=== PATIENT | male | born 1985 | race Caucasian/White ===

== ENCOUNTER 2020-09-07 13:58 | Emergency (ER) | payer SELFPAY ==
[2020-09-07 14:06] VITALS: BP 126/81; PULSE 84; RESP 18; TEMP 36.7; O2SAT 98; BMI 23.7
--- NOTE | 2020-09-07 14:40 | W.ED.EXTPRO ---
HPI - Extremity Problem General: Chief complaint: Extremity Injury, Upper Stated complaint: finger lac Time Seen by Provider: 09/07/20 14:14 History of Present Illness: HPI Narrative: 34-year-old male presents to the emergency room after an avulsion injury to the tip of his left thumb with a utility knife that he was using while putting up drywall. He is unsure of his last tetanus shot he had aggressively bandaged the wound before he came in. MD Complaint: extremity pain Onset (ago): minute(s) Pain Consistency: constant Location: left Quality: sharp Radiation: none Relieving factors: nothing Exacerbating factors: nothing Associated symptoms: Deny arthralgias, chest pain, fever(s), myalgias or rash Review of Systems Const: Denies: fever(s) Card: Denies: chest pain, edema, dyspnea on exertion or orthopnea Resp: Denies: dyspnea, productive cough or non-productive cough GI: Denies: abdominal pain, nausea, vomiting, hematemesis, coffee ground emesis, diarrhea, constipation, bloating, hematochezia or melena Skin/Breast: Denies: rash Physical Exam Const: COMMON NORMALS: average body habitus, patient oriented x3 and alert GENERAL APPEARANCE: cooperative, comfortable, well kempt and well developed NUTRITIONAL APPEARANCE: obese ORIENTATION/CONSCIOUSNESS: Yes awake, Yes oriented to person and Yes oriented to place HENMT: COMMON NORMALS: normocephalic, atraumatic and EAC's normal HEAD & SCALP: normocephalic and atraumatic EXTERNAL AUDITORY CANAL: EAC's normal Resp: COMMON NORMALS: normal respiratory effort, No retractions, No use of accessory muscles and clear to auscultation bilaterally AUSCULTATION: clear to auscultation bilaterally Cardio: COMMON NORMALS: regular rate and regular rhythm RATE: regular rate RHYTHM: regular rhythm HEART SOUNDS: no murmurs Extremity: NARRATIVE EXTREMITY EXAM: Avulsion of the pad of the left thumb. To little bit more distal to the tip it is about 1 cm round. Neuro: COMMON NORMALS: patient oriented x3 SENSORIUM/ORIENTATION: Yes alert, Yes oriented to person and Yes oriented to place Psych: APPEARANCE: Yes well kempt Course Vital Signs: Vital signs: Vital Signs Temperature 98.0 F 09/07/20 14:06 Pulse Rate 84 10/20/20 14:06 Respiratory Rate 18 09/07/20 14:06 Blood Pressure 126/81 09/07/20 14:06 Pulse Oximetry 98 09/07/20 14:06 MDM - Extremity (Nontraumatic) MDM Narrative: Medical decision making narrative: Wound dressed with Vaseline gauze demonstrated patient how to dress the wound advised he does once daily wound care instructions given Tylenol or Profen as needed follow-up as needed with primary care doctor tetanus updated Discharge Plan Discharge Patient Disposition: Home Clinical Impression: Avulsion of finger tip Condition: Stable Discharge Orders: Discharge Order (Routine); Ordered 09/07/20 Ordered By: Vidal Samuel Discharge Diet: Usual diet Discharge Activity: Increase activity as tolerated Activity Restrictions/Additional Instructions: Wound care instructions as given change of dressing once daily Coding Level of Care Code ED Nail Making Machine Setter for Neli Martinez
[2020-09-07] MEDS: tetanus-dipt-pertussis 0.5 mL SDV IM (14:55)
== END 2020-09-07 14:58 | disposition home or self-care (01) ==
PROVIDERS: Emergency Provider Family Medicine
DX: S61.002A Unspecified open wound of left thumb without damage to nail, initial encounter (principal); W26.0XXA Contact with knife, initial encounter; Z23 Encounter for immunization
CPT/HCPCS: 12345; 90471; 90715; 99281; 99282

== ENCOUNTER 2021-01-10 23:03 | Emergency (ER) | payer SELFPAY ==
[2021-01-10 23:10] VITALS: BP 130/83; PULSE 68; RESP 16; TEMP 36.7; O2SAT 99; BMI 25.0
--- NOTE | 2021-01-10 23:10 | XR_ITS ---
WS: [id number] Exam: XR knee LT 3V* [id number] Date/Time of Exam: 01/10/2021 11:13 PM Reason For Exam: left knee pain No fracture or dislocation. The medial and lateral joint compartments are preserved. There is subchon dral bone spurring along the articulating surface of the patella. No joint effusion. XR/XR knee LT 3V* [id number] IMPRESSION: 1. No fracture or joint effusion. 2. Subchondral bone spurring seen along the articulating surface of the patella .
[2021-01-10] MEDS: ibuprofen 600 mg Tablet PO (23:21)
--- NOTE | 2021-01-10 23:21 | W.ED.EXTPRO ---
HPI - Extremity Problem General: Chief complaint: Extremity Injury, Lower Stated complaint: twisted knee Time Seen by Provider: 01/10/21 23:10 Source: patient Mode of arrival: ambulatory Limitations: no limitations History of Present Illness: HPI Narrative: 35-year-old male patient presents to the emergency department with left knee pain. He states was standing on a ladder today when he turned causing twisting of the knee. He reports similar episode in the past. History of left knee surgery at age 14 due to ligament injury. He states wearing an Arpit wrap helps, has not had anything for pain. He did not sustain a fall. He denies weakness of the left knee, able to ambulate with minor discomfort. MD Complaint: joint swelling Onset (ago): day(s) (today at noon) Pain Consistency: intermittent Location: left and lower extremity Quality: aching and dull Radiation: none Relieving factors: immobilization and rest Exacerbating factors: weight bearing and walking Associated symptoms: Deny chest pain, fever(s) or rash Review of Systems General: Reports: 10 or more systems reviewed and unremarkable except in HPI and below Const: Denies: fever(s), chills or diaphoresis Eyes: Denies: blurry vision or eye redness ENMT: Denies: throat pain, dental pain or disequilibrium Card: Denies: chest pain, palpitations or irregular heart rhythm Resp: Denies: dyspnea, productive cough, non-productive cough or wheezing GI: Denies: abdominal pain, nausea or vomiting : Denies: difficulty urinating, dysuria or urinary urgency Musc: Reports: joint pain and joint swelling; Denies: neck pain or back pain Skin/Breast: Denies: rash or pruritus Neuro: Denies: headache(s), weakness in extremities or behavioral changes Psych: Denies: anxiety, depression, sleeping more or change in appetite Carlos/Lymph: Denies: easy bruising PFSH ED PFSH: Medical History Healthy adult Physical Exam Const: COMMON NORMALS: no acute distress, patient oriented x3, healthy appearing and alert GENERAL APPEARANCE: cooperative, comfortable and well hydrated HENMT: COMMON NORMALS: normocephalic, Normal external nose present and moist oral mucous membranes HEAD & SCALP: normocephalic NOSE: Normal external nose present Eye: COMMON NORMALS: Equal, round and reactive pupils present and EOMs intact bilaterally GENERAL EYE: appearance normal, both eyes and all related structures PUPIL: Yes Equal, round and reactive pupils present Neck/C-Spine: COMMON NORMALS: full ROM and no lymphadenopathy GENERAL: Yes normal visual inspection and Yes trachea midline CERVICAL SPINE: Yes cervical ROM normal Lymph: LYMPHATIC: no lymphadenopathy noted Chest: COMMONS NORMALS: normal inspection of the chest Resp: COMMON NORMALS: normal respiratory effort and clear to auscultation bilaterally AUSCULTATION: clear to auscultation bilaterally Cardio: COMMON NORMALS: regular rhythm, S1 normal heart sound present, S2 normal heart sound present and Peripheral pulses 2+ throughout RHYTHM: regular rhythm HEART SOUNDS: S1 normal heart sound present and S2 normal heart sound present PERIPHERAL PULSES: Peripheral pulses 2+ throughout GI: COMMON NORMALS: Soft to palpation and non-tender INSPECTION: Yes normal to inspection PALPATION: Yes Soft to palpation : COMMON NORMALS: Yes no CVA tenderness BLADDER/KIDNEY EXAM: Yes no CVA tenderness Back/Pelvis: COMMON NORMALS: no CVA tenderness and thoracic and lumbar spine normal to inspection Extremity: COMMON NORMALS: normal to inspection, full ROM, capillary refill normal, no clubbing, cyanosis or edema, no calf tenderness and no pedal edema GENERAL: Yes normal exam except as noted LEFT LOWER EXTREMITY: Yes knee joint Left knee: Yes inspection (normal), Yes palpation (pain medial patella), Yes ROM (Full passive flexion extension noted) and Yes neurovascular exam (Distally intact) OTHER: Not able to produce pain to the left hip or ankle/foot. Neuro: COMMON NORMALS: patient oriented x3 and no focal motor deficits SENSORIUM/ORIENTATION: Yes alert Psych: COMMON NORMALS: mental status grossly normal, Normal thought process present and cooperative ACTIVITY/MOTOR BEHAVIOR: Yes appropriate eye contact THOUGHT PROCESS: Normal thought process present Skin: COMMON NORMALS: no rashes or lesions noted and turgor normal GENERAL SKIN EXAM: no rashes or lesions noted and turgor normal Course Vital Signs: Vital signs: Vital Signs Temperature 98.1 F 01/10/21 23:10 Pulse Rate 62 01/10/21 23:22 Respiratory Rate 15 01/10/21 23:22 Blood Pressure 130/83 01/10/21 23:10 Pulse Oximetry 99 01/10/21 23:22 MDM - Extremity (Nontraumatic) Imaging Data^: Xray Ortho: My impression: No acute abnormality noted, joint spacing appears normal, no fracture appreciated, radiology interpretation pending. Discharge Plan Discharge Patient Disposition: Home Clinical Impression: Knee strain Qualifiers: Encounter type: initial encounter Laterality: left Qualified Code(s): S86.912A - Strain of unspecified muscle(s) and tendon(s) at lower leg level, left leg, initial encounter Acute knee pain Qualifiers: Laterality: left Qualified Code(s): M25.562 - Pain in left knee Condition: Stable Prescriptions: New IBU 600 mg tablet 600 mg PO TID PRN (Reason: pain) Qty: 30 RF: 0 Discharge Orders: Discharge ED (Routine); Ordered 01/10/21 Ordered By: Dolores Park Discharge Diet: Usual diet Discharge Activity: Limit activity as instructed Patient Instructions: Knee Sprain (ED), Knee Pain (ED), Knee Immobilizer (ED), Opioid Safety Activity Restrictions/Additional Instructions: May apply ice to the left knee as needed for pain Left knee immobilizer to help with pain and avoid further twisting injuries Follow-up with your primary care in 5 to 7 days if left knee has not improved Take ibuprofen as prescribed, take with food; avoid [id number] use of other NSAIDs such as Aleve, Advil or ibuprofen. Coding Level of Care Code ED Revolving Inventory Clerk for Neli Fwemanuel Exam Comprehensive
[2021-01-10 23:22] VITALS: PULSE 62; PULSE 65; RESP 15; O2SAT 99
[2021-01-10 23:48] VITALS: BP 137/77; PULSE 65; RESP 15; O2SAT 99
== END 2021-01-10 23:49 | disposition home or self-care (01) ==
PROVIDERS: Emergency Provider Nurse Practitioner Family
DX: S86.912A Strain of unspecified muscle(s) and tendon(s) at lower leg level, left leg, initial encounter (principal); X50.1XXA Overexertion from prolonged static or awkward postures, initial encounter
CPT/HCPCS: 29530; 73562; 99283